=== PATIENT | male | born 1975 | race Caucasian/White ===

== ENCOUNTER 2016-12-03 14:21 | Inpatient (IN) | payer OTHER ==
[~2016-12-03] VITALS: Ht 200.7 cm; Wt 263.4 kg
--- NOTE | ~2016-12-03 | ENPV ---
Vascular Lower Extremities DVT Study Procedure Demographics Patient Name TESFAYE WILCOX Date of Study 12/03/2016 Patient Number [id number] Gender Male Date of 1975 Age 41 Visit Number [id number] Height Accession Number [id number] Weight Room Number G3217 BSA BMI Referring Daria Pichardo Interpreting Arjun Miller MD Physician Physician Physician Ordering Physician Daria Kumar MD [employer] Meal Attendant Sam Hayden [facility], [facility] Conclusions Summary No evidence of deep vein thrombosis or superficial thrombophlebitis in the right lower extremity . Procedure Type of Study: Veins:Lower Extremities DVT Study, Lower Extremity Right. Indications for Study:Pain in Limb and Swelling of Limb. Appropriate Use Criteria:9 Allergies - No known allergies. Patient Status:STAT. Study Location:ER. Technical Quality:Adequate visualization. Velocities are measured in cm/s ; Diameters are measured in cm Right Lower Extremities DVT Study Measurements Right 2D and Doppler Measurements + + + + +------+------+ + !Location !Visualized!Compressibility!Thrombosis!Signal!Reflux!Reflux ! ! ! ! ! ! ! !(sec) ! + + + + +------+------+ + !GSV Thigh !Yes !Yes !None !Phasic! ! ! + + + + +------+------+ + !Common !Yes !Yes !None !Phasic! ! ! !Femoral ! ! ! ! ! ! ! + + + + +------+------+ + !Prox !Yes !Yes !None !Phasic! ! ! !Femoral ! ! ! ! ! ! ! + + + + +------+------+ + !Mid Femoral!Yes !Yes !None !Phasic! ! ! + + + + +------+------+ + !Dist !Yes !Yes !None !Phasic! ! ! !Femoral ! ! ! ! ! ! ! + + + + +------+------+ + !Popliteal !Yes !Yes !None !Phasic! ! ! + + + + +------+------+ + !Gastroc !Yes !Yes !None !Phasic! ! ! + + + + +------+------+ + !PTV !Yes !Yes !None !Phasic! ! ! + + + + +------+------+ + !Peroneal !Yes !Yes !None !Phasic! ! ! + + + + +------+------+ + Left Lower Extremities DVT Study Measurements Left 2D and Doppler Measurements + + + + +------+------+ + !Location !Visualized!Compressibility!Thrombosis!Signal!Reflux!Reflux ! ! ! ! ! ! ! !(sec) ! + + + + +------+------+ + !Common !Yes !Yes !None !Phasic! ! ! !Femoral ! ! ! ! ! ! ! + + + + +------+------+ + Signature dtt: MALINI PATTEN dtquinn: 12/03/16 1635 Physician Self Edit
--- NOTE | ~2016-12-03 | CON ---
PATIENT'S NAME: TESFAYE WILCOX [facility] AGE: 41 Y [address] ROOM: [address] [place] [id number] LOCATION: [facility] [place] ADMIT DATE: 12/03/2016 Consultation DISCHARGE DATE: FAMILY PHYSICIAN: Miah Mishra MD ATTENDING PHYSICIAN: ADITYA VILLA V REFERRING PHYSICIAN: CORRINE FRANCISCO PA-C CHIEF COMPLAINT: Right foot pain. HISTORY OF PRESENT ILLNESS: Tesfaye is a pleasant 41-year-old, morbidly obese gentleman, I was asked to see and evaluate for a draining right foot wound. The patient has been to the hospital on December 03, 2016 with pain, erythema, and drainage coming from his right foot. He does have a past medical history significant for diabetes mellitus, cardiomyopathy, and obesity. He had a history of osteomyelitis and wound problems in the left forefoot, which ultimately resulted in amputation of his great and second toes. Since that time, he has had relatively no difficulty with that left foot. He ambulates independently. The patient has noted in the last few weeks, there has been a wound at the lateral border of the right forefoot that has progressed to wound breakdown. He recently developed erythema, swelling, and purulent drainage. He was started on antibiotics on admission, and the drainage has subsided, and his pain has improved, but there was still a persistent wound. Unfortunately, the patient is unable to obtain an MRI because he has a pacemaker. He is also unable to obtain a CT scan secondary to his inability to fit into the CT scanner. The patient was rendering local wound care to the right foot, felt as though he was not making any progress which prompted him to present to the emergency room. Currently, the patient denies any constitutional symptoms such as fever, chills, or night sweats. He also denies any dizziness, chest pain, shortness of breath, blurred vision, nausea, vomiting, or diarrhea. REVIEW OF SYSTEMS: A 10-point review of systems, otherwise, mentioned above in the HPI. The patient issue is musculoskeletal and pertains to the right lower extremity. There is pain, swelling, and active purulent drainage from the lateral border of the right forefoot. PAST MEDICAL HISTORY: Includes obstructive sleep apnea, insulin-dependent diabetes, nonischemic cardiomyopathy, hypertension, and previous amputations of the left foot. MEDICATIONS: Include, 1. Simvastatin. 2. Lisinopril. PATIENT'S NAME: TESFAYE WILCOX [facility] AGE: 41 Y [address] ROOM: [id number] [place], [place] [address] LOCATION: [facility] [place] ADMIT DATE: 12/03/2016 Consultation DISCHARGE DATE: FAMILY PHYSICIAN: Miah Mishra MD ATTENDING PHYSICIAN: ADITYA VILLA V 3. Carvedilol. 4. Furosemide. 5. Magnesium oxide. 6. Metolazone. 7. Aspirin. 8. Humulin insulin. SOCIAL HISTORY: Negative for any ongoing history of toxic habits. He denies any alcohol, tobacco, or illicit drug use. FAMILY HISTORY: Includes history of diabetes in the maternal and paternal sides of the family. PHYSICAL EXAMINATION: VITALS SIGNS: Temperature 98.4, respirations of 18, heart rate of 60, and blood pressure 137/69. HEENT: Normocephalic and atraumatic. Extraocular movements are intact. PERRLA. Moist mucous membranes. Oropharyngeal airway is clear. NECK: Supple. Trachea is in the midline. CARDIOVASCULAR: Regular rate and rhythm. ABDOMEN: Soft, nontender, and nondistended. CHEST: Normal, symmetric respirations were observed bilaterally. PELVIS: Stable. MUSCULOSKELETAL: Right lower extremity; focal examination of his right lower extremity reveals that he has compartment that are soft at the thigh, legs, and foot. There is palpable dorsalis pedal and dorsalis pedal pulse. There is +2 edema in the leg. The previous erythema, likely cellulitis, has resolved. There is significant swelling of the right foot. There is fluctuance at the lateral border of the foot at the level of the fifth metatarsal head. There is purulent drainage present. The patient is actively able to dorsiflex and plantar flex his foot. He denotes decreased sensation of the plantar surface of the foot. There was more intact sensation at the dorsum of the foot. The patient has evidence of gastrocnemius equinus. Left lower extremity focal examination; the patient's left lower extremity reveals that the thigh, calf, and foot are soft. Compartments are soft. There are palpable dorsalis pedal and posterior tibial pulses. The patient has had an amputation of the great and second toes. The flaps are healed. Extremities, otherwise, warm and well perfused. He has good capillary refill in the lesser toes. The patient is actively able to dorsiflex and plantar flex his ankle. He has good strength that is graded 5/5. IMAGING DATA: Plain radiographs of the right foot were obtained that revealed evidence of an PATIENT'S NAME: TESFAYE WILCOX [facility] AGE: 41 Y [address] ROOM: [place] [address] LOCATION: [facility] [place] ADMIT DATE: 12/03/2016 Consultation DISCHARGE DATE: FAMILY PHYSICIAN: Miah Mishra MD ATTENDING PHYSICIAN: ADITYA VILLA V active osteomyelitis picture of the fifth metatarsal head and small toe. There is significant soft tissue swelling present. 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 LABORATORY VALUES: CBC: Hemoglobin 10.3, hematocrit 33, white blood cell count of 8.1, and platelet count of 249. Chem-7: Sodium 140, potassium 4.2, chloride 105, CO2 of 27, BUN 9, creatinine 0.8, glucose 179. PTT of 30, INR 1.2, PT of 12.3. Micro from wound culture includes evidence of multiple organisms including Proteus mirabilis, Staphylococcus aureus, and Staphylococcus intermedius. Blood cultures are currently negative. Urine culture is likely contaminated. CRP is 10.8. Procalcitonin is negative. Glycosylated hemoglobin is 8.7. IMPRESSION: 1. Right foot osteomyelitis with active draining wound. 2. Morbid obesity with poorly controlled insulin-dependent diabetes mellitus. 3. Gastrocnemius equinus. PLAN: I had a long discussion with the patient today in the presence of his regarding his right foot. The swelling and purulent drainage along with the surrounding periwound cellulitis has improved with parenteral antibiotics. Unfortunately, based upon his plain film, there is osteomyelitis in the foot at least at the level of the small toe and fifth metatarsal distally. Unfortunately, the patient is not a candidate for advanced diagnostic imaging as he has a pacemaker and is too large to fit into the gantry of the CT scanner. Despite this, I have discussed that with the patient's surgery. I am recommending a partial amputation of the right foot, likely a portion of the fifth ray and small toe along with extensive debridement of the affected soft tissues in the area. I am also recommending a gastrocnemius recession to address his equinus/shortened Achilles tendon. I believe this may be contributing to the overloading of the forefoot. I explained to the patient he may also require placement of a negative pressure wound VAC if I am unable to approximate the soft tissues intraoperatively for primary closure. I have discussed the risks, benefits, and alternatives pursuing a surgical intervention with the patient in detail. I discussed the risks of anesthesia, infection, bleeding, and/or injury to neurovascular structures about the right foot. The patient is a poorly-controlled diabetic, has the previous amputations, and is likely going to be at increased risk for delayed wound healing, or no healing of the wound at all, which may require a revision amputation. Ultimately, I believe the patient will likely require a below-the- knee amputation at some point moving forward. Seeing that the plantar surface of his foot is otherwise plantigrade with no unusual bony prominences but for the fifth metatarsal head, we will attempt a functional amputation of the foot PATIENT'S NAME: TESFAYE WILCOX [facility] AGE: 41 Y [address] ROOM: [place] [address] LOCATION: [facility] [place] ADMIT DATE: 12/03/2016 Consultation DISCHARGE DATE: FAMILY PHYSICIAN: Miah Mishra MD ATTENDING PHYSICIAN: ADITYA VILLA V and try to get him back ambulating as soon as the foot is healed. The patient is currently n.p.o. He has been cleared for surgery by the hospitalist. We will plan for surgery as soon as this afternoon. MD CELIA WHEELER/eddie /[id number] d: 12/07/16 0849 t: 12/07/16 1332, CONSULTATION REPORT
--- NOTE | ~2016-12-03 | CON ---
[facility] 41 Y [address] ROOM: [place] [address] [place] [facility] [place] DATE: 12/03/2016 Consultation DISCHARGE DATE: FAMILY PHYSICIAN: Miah Mishra MD ATTENDING PHYSICIAN: ADITYA VILLA V DATE OF CONSULTATION: 12/09/2016 REFERRING PHYSICIAN: CORRINE FRANCISCO PA-C INFECTIOUS DISEASE CONSULTATION REASON FOR EVALUATION: Infected foot. CHIEF COMPLAINT: The patient states that he is doing better. HISTORY OF PRESENT ILLNESS: Mr. Borrego is a 41-year-old morbidly obese diabetic man. He developed a wound on the right lateral part of his foot, and it was worsening over several weeks. It was draining pus, and there was erythema tracking up his foot. Foot x-ray was consistent with osteomyelitis, due to his body habitus, we could not obtain any other imaging. He was admitted to the hospital and started on empiric antibiotics. He was evaluated by Orthopedics. He underwent surgery with a fifth ray amputation, and the OP note mentions the distal two-third proximally of the metatarsal was removed. He is doing okay and had a dressing change earlier today, and tissues were reportedly looking good at that time. I have viewed the picture on the patient's family member's cell phone, and it looked okay. He has not had fevers. He remains on vancomycin and Zosyn. I am asked to evaluate. PAST MEDICAL HISTORY: Significant for other toe infection, status post amputation, diabetes mellitus (hemoglobin A1c 8.7), morbid obesity, obstructive sleep apnea, cardiomyopathy, high blood pressure, dyslipidemia. SOCIAL HISTORY: Negative for tobacco, alcohol, or drug use. FAMILY HISTORY: No unusual infections or immune disorder. REVIEW OF SYSTEMS: Pertinent positives include: MUSCULOSKELETAL: The patient with the foot issues. PATIENT'S NAME: YADIRA BORREGOH [facility] AGE: 41 Y [address] ROOM: [place] [address] [place] [facility] [place] DATE: 12/03/2016 Consultation DISCHARGE DATE: FAMILY PHYSICIAN: Miah Mishra MD ATTENDING PHYSICIAN: ADITYA VILLA V RESPIRATORY: The patient with obstructive sleep apnea, uses CPAP when he sleeps. As the patient denies other symptoms, remainder of a complete review of systems is otherwise negative. PHYSICAL EXAMINATION: GENERAL: The patient is lying in bed, in no acute distress. HEENT: The patient is anicteric. No conjunctival lesions noted. Ears, Nose, and Throat: Tongue has no thrush. CARDIOVASCULAR: Heart is regular rate and rhythm. RESPIRATORY: Breath sounds are a little bit diminished due to body habitus, but his breathing is unlabored, and there are no focal findings. GASTROINTESTINAL: Abdomen is obese, soft, nontender, normoactive bowel sounds are present. NEUROLOGIC: The patient is awake, alert, and appropriate in conversation. LYMPHATIC: No cervical or axillary lymphadenopathy. Examination is limited secondary to his body habitus. MUSCULOSKELETAL: The patient's foot is in a bulky dressing at this time. INTEGUMENTARY: His midline catheter site looks okay. His foot is in a bulky dressing. He has no obvious rash. LABORATORY DATA: Laboratory studies are reviewed in the electronic medical record. ASSESSMENT AND RECOMMENDATIONS: Fifth metatarsal osteomyelitis. Hopefully, he has had surgical cure of infection here. Pathology is pending at this point. I will await the pathology margin. Should the margin be positive, he will require either further bony resection (which might be preferable) or long-term parenteral antibiotics. If he does require long-term parenteral antibiotics, a Groshong might be preferable to a PICC line as he will be needing crutches. Should his pathology margins to be negative, I think oral Augmentin until he has good tissue healing will be appropriate. I would dose him higher than normal with a dose of 875 mg 3 times daily given his body mass. Should pathology margin not be reported, I would ask Pathology specifically about the margins, so we can determine if he has any residual osteomyelitis present. Thank you for allowing me to participate in the care of Mr. Borrego. Please feel free to contact ID Service when pathology margin is available, so we can formalize a treatment plan. PATIENT'S NAME: TESFAYE BORREGO [facility] AGE: 41 Y [address] ROOM: [place] [address] [place] [facility] [place] DATE: 12/03/2016 Consultation DISCHARGE DATE: FAMILY PHYSICIAN: Miah Mishra MD ATTENDING PHYSICIAN: ADITYA VILLA MD DSQ/modl /[id number] d: 12/09/162019 t: 12/10/16 1002, CONSULTATION REPORT
--- NOTE | ~2016-12-03 | HP ---
[facility] 41 [facility] [address] ROOM: [place] [address] [place] [facility] [place] DATE: 12/03/2016 History & Physical DISCHARGE DATE: FAMILY PHYSICIAN: Miah Mishra MD ATTENDING PHYSICIAN: ADITYA VILLA V DATE OF SERVICE: CHIEF COMPLAINT: Open wound on the right foot. HISTORY OF PRESENT ILLNESS: The patient is a 41-year-old male with past medical history of super morbid obesity and prior diabetic osteomyelitis of the foot requiring amputations. He presented to the ER with several weeks of worsening open wound on his right lateral foot. In the last several days, the wound has opened up and started draining purulent material. There is also swelling tracking up the right lateral aspect of the foot. He denies any chest pain. His shortness of breath is at baseline attributed to his super morbid obesity, obstructive sleep apnea, and nonischemic cardiomyopathy. REVIEW OF SYSTEMS: All systems have been reviewed and are negative aside from the pertinent positives mentioned above. PAST MEDICAL HISTORY: 1. Obstructive sleep apnea. 2. Nonischemic cardiomyopathy, followed by Cardiology. 3. Insulin-dependent diabetes. 4. Hypertension. 5. Prior history of diabetic osteomyelitis of the foot. PAST SURGICAL HISTORY: Significant for prior amputations. CURRENT MEDICATIONS: 1. Simvastatin 20 mg. 2. Lisinopril 20 mg. 3. Carvedilol 25 mg. 4. Furosemide 80 mg. 5. Magnesium oxide 400 mg. 6. Metolazone 2.5 mg. 7. Aspirin 325 mg. [facility]: [facility] 41 Y [address] ROOM: [place] [id number] [place] [facility] [place] DATE: 12/03/2016 History & Physical DISCHARGE DATE: FAMILY PHYSICIAN: Miah Mishra MD ATTENDING PHYSICIAN: ADITYA VILLA V 8. Humulin U-500 15 to 25 units with meals. SOCIAL HISTORY: Negative for any toxic habits. FAMILY HISTORY: Reviewed and is noncontributory due to known underlying etiology of his presentation. PHYSICAL EXAMINATION: VITAL SIGNS: Weight 238 kg. Pulse is 60, respirations 22, temperature 98, saturating 93% on room air, and blood pressure 139/65. GENERAL: Appears as a morbidly obese, middle-aged male, in no acute distress. NEUROLOGICAL: Nonfocal. EYES: Show pupils are equal and reactive to light. LYMPHATIC: Shows no cervical lymphadenopathy. ENDOCRINE: Shows no thyromegaly. LUNGS: Difficult auscultation, but grossly clear. HEART: Rate is regular with no appreciable murmurs, gallops, or rubs. GI: Abdomen is soft, nontender. : No costovertebral angle tenderness. VASCULAR: Reveals palpable pedal pulses bilaterally. MUSCULOSKELETAL: No muscle or joint abnormalities aside from prior amputations over his left foot. SKIN: Exam on the right foot reveals an open wound with purulent discharge on the right lateral aspect of his foot, with edema and erythema tracking up to his toe and proximally down his lateral right foot. PSYCHIATRIC: Reveals appropriate mood, cognition, and affect. LABORATORY DATA: Studies performed in the ER significant for a plain film of the foot as the only modality available, which does show distant right metatarsal osteomyelitis. Lab results are significant for proBNP of 566, CRP of 10.8, negative CBC, and unremarkable UA. ASSESSMENT AND PLAN: This is a 41-year-old male, who will be admitted with diabetic osteomyelitis. Individual problems to be addressed: 1. Diabetic osteomyelitis of the right foot: I have requested for an Orthopedics consultation to see if the foot can be salvaged. We will start the patient on broad-spectrum antibiotics with vancomycin and Zosyn. Blood cultures have been drawn. We will get a Wound Care consult. 2. Gastrointestinal prophylaxis: We will put the patient on Florastor as he will be on broad-spectrum antibiotics. PATIENT'S NAME: TESFAYE WILCOX [facility] AGE: 41 Y [address] ROOM: [address] [place] [id number] [place] [facility] [place] DATE: 12/03/2016 History & Physical DISCHARGE DATE: FAMILY PHYSICIAN: Miah Mishra MD ATTENDING PHYSICIAN: ADITYA VILLA V 3. Insulin-dependent diabetes: We will continue the patient on his home regimen. 4. History of nonischemic cardiomyopathy: At this point, the patient appears to be at baseline. If and when a surgical intervention is planned, we will request a Cardiology evaluation to optimize the patient given his complex past cardiac history. 5. Obstructive sleep apnea: We will put him on his home CPAP. 6. Deep vein thrombosis prophylaxis will be pharmacologic given a very high risk for deep vein thrombosis. Additional management will depend on clinical course. Time dedicated to this patient's encounter is 35 minutes. MD JANIE LORENZ/eddie /[id number] D: [id number] T: [id number] HISTORY & PHYSICAL
--- NOTE | ~2016-12-03 | CON ---
PATIENT'S NAME: TESFAYE WILCOX [facility] AGE: 41 Y [address] ROOM: [address] [place], [place] [id number] LOCATION: [facility] [place] ADMIT DATE: 12/03/2016 Consultation DISCHARGE DATE: FAMILY PHYSICIAN: Miah Mishra MD ATTENDING PHYSICIAN: ADITYA VILLA V REFERRING PHYSICIAN: LIANG CAMPBELL Dr. has requested I provide an inpatient consultation on this 41-year- old male, who was admitted to the hospital on December 03 with pain, erythema, and drainage at his right foot. His past medical history is significant for diabetes mellitus, cardiomyopathy, and obesity. He has a history of osteomyelitis of his left forefoot (which ultimately required amputation of his left first and second toes). He has had no previous significant difficulty with his right foot. It should be noted that history is obtained via the patient, his , as well as Neil Lee PA-C. The patient developed the insidious onset of "blisters" at the lateral aspect of his right forefoot a few months ago. He questioned whether the work boots that he was wearing might have been a source of skin irritation, so he discontinued the potentially offending pair of boots. He denies any type of trauma to the right forefoot. He states that there was low-grade nonpurulent weeping-type drainage from the right forefoot over the past few months. However, he began to experience progressive pain, erythema, and swelling at the lateral aspects of the right forefoot approximately 1 week ago. Prior to that time, he and his had been applying Aquacel and hydrogen peroxide to the region. The patient associates the progressive of his right forefoot difficulties with ipsilateral generalized right lower extremity "fluid retention." He has chronic bilateral lower extremity lymphedema associated with his cardiomyopathy. The quality of his drainage transformed to a purulent state approximately 2 days ago. There was progressive erythema at that time as well. 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 The patient and his reside in [place]. He was admitted last evening. Cultures of the purulent drainage were obtained. X-rays were obtained. Empiric intravenous antibiotics were commenced (Zosyn and vancomycin). He denies fevers or chills. His workup has been complicated by virtue of the fact that he cannot have an MRI (due to the fact that he has an ICD). Furthermore, he was not able to fit in a CT scanner due to his body habitus. Plain radiographs were interpreted as demonstrating potential osteomyelitis of his fifth metatarsal head. He is not experiencing fevers, chills, or malaise. EXAM: PATIENT'S NAME: TESFAYE WILCOX [facility] AGE: 41 Y [address] ROOM: [address] [place], [place] [address] LOCATION: [facility] [place] ADMIT DATE: 12/03/2016 Consultation DISCHARGE DATE: FAMILY PHYSICIAN: Miah Mishra MD ATTENDING PHYSICIAN: ADITYA VILLA V The patient is alert and oriented. He is accompanied by his . He is in no distress. There is severe bilateral calf lymphedema. There was confluent erythema throughout the lateral half of his right forefoot. There was a 5 mm diameter open lesion at the plantar aspect of his fifth metatarsal head. There was moderate associated swelling and fluctuance. I am able to express purulent fluid through this area with gentle palpation. There was no fluctuance at the mid foot or the ankle itself. There was no pain with passive range of motion of the ankle itself. Capillary refill is 1 second at the tips of all toes in the right foot. Sensation to light touch is present (but subjectively decreased) at the tips of all the toes in his right foot. He is missing the first and second toes at his left foot. RADIOGRAPHS: I have reviewed the plain radiographs of his right foot. These demonstrate extensive resorption of bone at his fifth metatarsal head. No other osseous abnormalities noted. IMPRESSION: 1. Right forefoot cellulitis with associated subcutaneous abscess and osteomyelitis of fifth metatarsal head. 2. Diabetes mellitus. 3. Obesity. 4. Cardiomyopathy. 5. Chronic bilateral lower extremity lymphedema. 6. History of amputation of contralateral foot, first and second toes secondary to osteomyelitis. RECOMMENDATIONS: Continue empiric antibiotics until culture and sensitivity results are available. Neil and I had a lengthy discussion with the patient and his regarding treatment options. They understand that definitive treatment recommendations will be made by Dr. Almazan (upon Dr. Almazan' return to [facility] 48 hours from now). They understand irrigation and debridement and exploration of the wound will be performed. I have informed them that more definitive treatment (specifically), amputation of the fifth ray (or greater) may be necessary. The patient reports that analgesia is presently adequate. I have asked him to contact us promptly if he senses progressive discomfort, fevers, chills, malaise, or if he perceives that his status is deteriorating in any way prior to being evaluated by Dr. Almazan. Neil is made tentative arrangements for the patient in the operating room PATIENT'S NAME: TESFAYE WILCOX [facility] AGE: 41 Y [address] ROOM: [place] [address] LOCATION: [facility] [place] ADMIT DATE: 12/03/2016 Consultation DISCHARGE DATE: FAMILY PHYSICIAN: Miah Mishra MD ATTENDING PHYSICIAN: ADITYA VILLA V early next week. MD UBALDO WHITTINGTON/eddie /[id number] CC: MD Aditya Kumar MD d: 12/04/16 2155 t: 12/08/16 0753, CONSULTATION REPORT
--- NOTE | ~2016-12-03 | CON ---
PATIENT'S NAME: TESFAYE WILCOX [facility] AGE: 41 Y [address] ROOM: [address] [place], [place] [address] [place] [facility] [place] DATE: 12/03/2016 Consultation DISCHARGE DATE: FAMILY PHYSICIAN: Miah Mishra MD ATTENDING PHYSICIAN: ADITYA VILLA V DATE OF CONSULTATION: 12/04/2016 REFERRING PHYSICIAN: Aditya Villa MD REASON FOR VISIT: Right lateral foot wound. HISTORY OF PRESENT ILLNESS: This is a pleasant 41-year-old male patient who was admitted to [facility] with a right foot wound. The patient reports symptoms started about 10 days ago. Wednesday night, he noticed thick bloody exudate. morning, the drainage was thick and yellow. The patient denies fevers, chills, or sweats. No other constitutional symptoms noted. The patient denies pain. His has been treating the site with Vuclip Ag at home. He has a history of type 2 diabetes mellitus. His current hemoglobin A1c is 8.7%. He has a history of left great and second toe amputations by Dr. Fuentes. He has also been treated by [facility] in the past. He has worn a type of [place] walker boots in the past. He was fitted for them several years ago at [facility]. He is currently wearing no diabetic shoes, inserts, or offloading devices. His right foot x-ray is positive for osteomyelitis of the right fifth distal metatarsal area. Wound culture shows a few gram-positive cocci and moderate white blood cells. The patient is currently on IV vancomycin and Zosyn. The patient also has a significant history of obstructive sleep apnea, hypertension, morbid obesity, CHF, and nonischemic cardiomyopathy. He normally follows up with Dr. Mccloud. The patient denies chest pain or shortness of breath. He reports that in the last month he has been cutting down his portion size and had previously lost about 15 pounds. He reports since the ulcer started, he has been lying around more and has gained his weight back including some "water weight." The patient has seen Kary Vazquez APRN ([place]. He reports his blood sugars have improved in the last month since he has tried to change his diet. The patient currently lives in [place], [place] with his but still doctors some in [place]. PAST MEDICAL HISTORY: Type 2 diabetes mellitus, history of diabetic foot ulcers, obstructive sleep apnea, essential hypertension, morbid obesity, congestive heart failure, and PATIENT'S NAME: TESFAYE WILCOX [facility] AGE: 41 Y [address] ROOM: [address] [place], [place] [address] [place] [facility] [place] DATE: 12/03/2016 Consultation DISCHARGE DATE: FAMILY PHYSICIAN: Miah Mishra MD ATTENDING PHYSICIAN: ADITYA VILLA V nonischemic cardiomyopathy. PAST SURGICAL HISTORY: Circumcision, left great toe and second toe amputations, and a [employer] ICD pacemaker. FAMILY HISTORY: The patient endorses his parents suffered from heart disease. His mother also had diabetes. SOCIAL HISTORY: The patient lives with his in [place], [place]. He has 3 daughters. 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 He is a never-smoker. He admits to rare alcohol use. He denies illegal substances. ALLERGIES: NO KNOWN MEDICATION ALLERGIES. CURRENT MEDICATIONS: Pertinent to this dictation are: 1. IV vancomycin. 2. IV Zosyn. Please refer to the medication administration record for further details. PHYSICAL EXAMINATION: VITAL SIGNS: Temperature 98.4, pulse 62, respirations 18, blood pressure 119/58, and pulse oximetry 92% on room air. Height 6 feet 7 inches, weight 263.4 kg, and BMI 65.4. GENERAL: The patient is alert and oriented x3. In no acute distress. Appears as an obese, middle-aged patient. HEENT: Head is normocephalic and atraumatic. Oral mucosa intact. NECK: Girth large. HEART: Regular rate and rhythm. ABDOMEN: Round and soft. EXTREMITIES: +2 pedal pulses. +1 to +2 right foot edema. SKIN: Right lateral foot is fluctuant and erythemic. Lateral fifth metatarsal head area has a yellow discolored area with a small ulcer that measures 0.2 cm width x 0.2 cm length x 1.5 cm depth. No bone probe. Able to express a moderate amount of purulent exudate. No odor noted. Periwound is red and hot to touch. Erythema noted on the dorsal and plantar aspects of the foot. LABORATORY DATA: White blood cell count 10.7, hemoglobin 11.0, hematocrit 34.2, and platelets 281. Sodium 135, potassium 4.1, chloride 97, bicarbonate 31, BUN 22, PATIENT'S NAME: TESFAYE WILCOX [facility] AGE: 41 Y [address] ROOM: [place] [address] [place] [facility] [place]: 12/03/2016 Consultation DISCHARGE DATE: FAMILY PHYSICIAN: Miah Mishra MD ATTENDING PHYSICIAN: ADITYA VILLA V creatinine 1.1, and glucose 158. Albumin 3.1. Procalcitonin 0.05. Hemoglobin A1c 8.7%. Blood culture showed no growth to date. Wound cultures show a few gram-positive cocci, moderate white blood cells, moderate amount of amorphous material present, and rare epithelial cells. Subcultures pending. Right foot x-ray is positive for osteomyelitis of the distal fifth metatarsal. ASSESSMENT AND PLAN: Again, this is a 41-year-old male patient who was admitted to [facility] with a right foot wound. He has a significant history of type 2 diabetes mellitus and has osteomyelitis to the bone. 1. Right lateral fifth metatarsal head diabetic foot ulcer. The patient is positive for osteomyelitis. Orthopedics is onboard to make treatment recommendations. The patient will possibly need I and D or amputation. May possibly need to involve ID, and the patient may also need a PICC line. The patient had several questions, and I deferred answers to Orthopedics. I discussed with the patient the importance of offloading to prevent future ulcers. I also ordered a diabetic consult. It is helpful the patient is starting to make lifestyle modifications. For now, I instructed Nursing to loosely pack the wound with iodoform 1/4- inch Nu Gauze, changing it b.i.d. They may cover with Kerlix. The patient is to elevate his right foot at all times. 2. Type 2 diabetes mellitus. The patient is on insulin and Accu-Cheks. Diabetic consult ordered. Discussed lifestyle modifications. 3. Morbid obesity. The patient was encouraged to continue portion control. I would like to thank Dr. Villa for this consultation. HIRAL ANGLIN APRN FOR MD JUSTIN MOORE/eddie /[id number] d: 12/04/16 1458 t: 12/21/16 1508, CONSULTATION REPORT
--- NOTE | ~2016-12-03 | ER ---
[facility] 41 [facility] [address] ROOM: [place] [address] LOCATION: [facility] [place] ADMIT DATE: 12/03/2016 ER/Outpatient Report DISCHARGE DATE: FAMILY PHYSICIAN: Miah Mishra MD ATTENDING PHYSICIAN: ADITYA VILLA V Time of Arrival: 1421 hours. Time Seen: 1430 hours. IDENTIFICATION: A 41-year-old male. CHIEF COMPLAINT: Sore on right foot. HISTORY OF PRESENT ILLNESS: The patient is a 41-year-old white male from [place], [place], but comes back here because he is originally from [place], and he has lily in Dr. Barrett and Dr. Mishra. The patient has had a sore on the lateral aspect of his right foot for approximately 2 months. It has become red and angry over the last 2 days. He has had no fever or chills. No other systemic symptoms. He has had shortness of breath with activity, but that is not new. PAST MEDICAL HISTORY: ALLERGIES: NO KNOWN DRUG ALLERGIES. CURRENT MEDICATIONS: 1. Simvastatin 20 mg per day. 2. Lisinopril 20 mg a day. 3. Carvedilol 25 mg 1-1/2 tablets 2 times a day. 4. Furosemide 80 mg 2 per day. 5. Magnesium oxide 400 mg 2 per day. 6. Metolazone 2.5 mg on Wednesday, Wednesday, and Wednesday. 7. Aspirin 325 mg day. 8. Humulin U-500 15-25 units with meals. MEDICAL PROBLEMS: Diabetes, insulin requiring; CHF; morbid obesity; nonischemic cardiomyopathy, status post AICD pacemaker per Dr. Johnson in 2013; peripheral neuropathy; hyperlipidemia; coronary artery disease; elevated liver enzymes; obstructive sleep apnea; and hypertension. PRIOR SURGERIES: PATIENT'S NAME: [facility] AGE: 41 Y [address] ROOM: [place] [address] LOCATION: [facility] [place] ADMIT DATE: 12/03/2016 ER/Outpatient Report DISCHARGE DATE: FAMILY PHYSICIAN: Miah Mishra MD ATTENDING PHYSICIAN: ADITYA VILLA V Left great toe amputation and left second toe amputation. SOCIAL HISTORY: The patient is . This is a 2nd marriage between the 2 of them. They have 6 children and 5 grandchildren. He lives in [place]. He works at [employer]. Tobacco use, denies. Alcohol use, denies. Drug use, denies. REVIEW OF SYSTEMS: All systems reviewed and negative other than what is noted in the HPI. FAMILY HISTORY: Positive for obesity. Mother of complication of congestive heart failure with diabetes and hypertension. Father was killed in an MVA, 1 brother at age 21 in an MVA. PHYSICAL EXAMINATION: VITAL SIGNS: Height 6 feet 7 inches, weight 238.6 kg (575 pounds), blood pressure 139/65, pulse 60, respirations 22, temperature 98.9, and saturations 93% on room air. GENERAL: A 41-year-old male, in no acute distress. HEENT: Head: Normocephalic, atraumatic. TMs not visualized. Eyes: Pupils equal and reactive to light and accommodation. Extraocular movements intact. Nose: Mucosa pink. No lesions or drainage. Mouth: No lesions. Pharynx benign. NECK: Supple. No lymphadenopathy. No nuchal rigidity. LUNGS: Clear to auscultation. Breath sounds are equal. HEART: Regular rate and rhythm. No murmur, rub, or gallop. ABDOMEN: Protuberant. Bowel sounds present. Soft, nondistended, nontender. SKIN: [place], warm, and dry. No lesions or rashes noted. NEURO: The patient is alert and oriented x4. Cranial nerves 2 through 12 grossly intact. Motor strength 5/5 throughout. Sensation is intact to light touch with the exception of the bottoms of his feet. He has some peripheral neuropathy and that is not new. He does have bilateral lower extremity edema, right greater than left. He has open ulcerative lesion measuring approximately 2.5 cm in diameter on the lateral aspect of his right foot with surrounding erythema extending out about 8 or 9 cm. The wound is draining, it was cultured, it is warm to touch and tender. X-ray revealed osteomyelitis of the distal aspect of the left 5th metatarsal, pending Radiology over-read. Chest x-ray, 1 view: Bilateral increased pulmonary vascularity; no definite infiltrate; poor inspiratory effort; pacemaker, left upper chest per Radiology over-read. Gram stain of the wound positive for moderate white blood cells, few gram-positive cocci. Culture is pending. UA is negative. Urine culture pending. Blood cultures x2 pending. ProBNP PATIENT'S NAME: TESFAYE WILCOX [facility] AGE: 41 Y [address] ROOM: [address] [address] LOCATION: [facility] [place] ADMIT DATE: 12/03/2016 ER/Outpatient Report DISCHARGE DATE: FAMILY PHYSICIAN: Miah Mishra MD ATTENDING PHYSICIAN: ADITYA VILLA V elevated at 566. No previous proBNP available for comparison. D-dimer elevated at 2.17. Venous Doppler of his right lower extremity negative for clot. Sodium 135, potassium 4.1, chloride 97, CO2 31, BUN 22, creatinine 1.1, blood sugar 158. Liver enzymes are normal. CRP elevated at 10.80. INR 1.2. White count 10.7, hemoglobin 11, hematocrit 34.2, and platelets 281. White blood cell differential is normal. Procalcitonin 0.05. Lactate 1.5. IMPRESSION AND PLAN: 1. Osteomyelitis, right lower extremity. 2. Ulcerative wound, right lower extremity. 3. Diabetes mellitus, insulin requiring. 4. Morbid obesity. 5. Nonischemic cardiomyopathy. 6. Congestive heart failure. PLAN: Saline lock, vancomycin, and Zosyn. Admit for Dr. Villa. I did discuss with Dr. Amin who is on-call for Dr. Mishra. He recommended hospitalist admission and I notified Dr. Mccloud, his glass cleaning machine tender. The patient and his understand and agree, and all questions have been answered. GAEL MO MD CAR/modl /[id number] d: 12/03/168 t: 12/04/16 1541, OUTPATIENT REPORT
--- NOTE | ~2016-12-03 | DS ---
PATIENT'S NAME: TESFAYE WILCOX [facility] AGE: 41 Y [address] ROOM: [id number] [place], [place] [address] [place] [facility] [place] DATE: 12/03/2016 Discharge Summary DISCHARGE DATE: 12/11/2016 FAMILY PHYSICIAN: Miah Mishra MD ATTENDING PHYSICIAN: Jose Francisco Dubon CO-SIGING PROVIDER PER PHYSICIAN 01/11/17 AO FINAL DIAGNOSES: 1. Osteomyelitis of the right foot. 2. Diabetes mellitus type 2. 3. Ischemic cardiomyopathy. 4. Morbid obesity. 5. Obstructive sleep apnea. PROCEDURES: Include I and D of the 5th toe with amputation of the 5th toe and partial 5th metatarsal amputation by Dr. Almazan. Also PowerGlide line inserted on 12/10/[address] Mac. HOSPITAL COURSE: Please see details of admission in H and P by Dr. Dubon. Briefly, the patient was admitted with continued signs of infection from his right foot. He has had previous amputation to his left forefoot secondary to diabetes complications. The patient noticed similar symptoms and thus was admitted to the hospital for further evaluation and treatment. Consultation by wound nurse was obtained. The patient was started on vancomycin and Zosyn. Dr. Lee was notified of consultation, and he was able to evaluate the patient on the and did recommend Dr. Almazan to follow up upon his return. We monitored his blood sugars closely as the patient does require great amounts of insulin. With his history of nonischemic cardiomyopathy, we did continue his diuretics and medications for secondary prevention. Wound cultures were obtained prior to the onset of antibiotic therapy on the . Culture showed Proteus mirabilis, Staphylococcus aureus, and Streptococcus intermedius. Infectious Disease was consulted for further management of the patient's ongoing infection. Dr. Almazan did see the patient on the and recommended I and D with amputation as mentioned above. The patient's pain was well controlled throughout his stay with Percocet. On the , the patient did undergo I and D and amputation. During his stay here, we did discuss evaluation with a specialist for his diabetes and metabolic disorders. It was determined that we would set him up with a specialist at the [facility] upon discharge. The patient did well; initially had wound VAC, but that was discontinued on postoperative day #2. Infectious Disease did see him on the , recommended Unasyn 3 g IV q.6 hours for potentially 6 weeks. We were not able to have bone pathology evaluation during this stay and the decision was made to continue IV antibiotics with the Unasyn. Due to long-term antibiotics, we needed long-term IV access. The PowerGlide was recommended due to the patient using crutches for ambulation. This was able to be accomplished on 12/10/2016 and was not completed until 1800 that day. On the PATIENT'S NAME: TESFAYE WILCOX [facility] AGE: 41 Y [address] ROOM: [place] [address] [place] [facility] [place] DATE: 12/03/2016 Discharge Summary DISCHARGE DATE: 12/11/2016 FAMILY PHYSICIAN: Miah Mishra MD ATTENDING PHYSICIAN: Jose Francisco Dubon V , it was felt that the patient could safely be discharged, home infusion was able to be set up. The patient was educated and fully understood dressing changes and further management of the foot. Infectious Disease will continue to follow as an outpatient and will see him [place] in 2 weeks. DIAGNOSTICS: Radiology reports: X-ray of the right foot shows osteomyelitis of the distal 5th metatarsal. Chest x-ray shows cardiomegaly with chronic pulmonary hypertension. Two-view of the right foot on 12/07/2016 shows amputation of the little toe and distal portion of the 5th metatarsal. LABORATORY DATA: Blood sugars ranged from 84 to 268. Lactate on the was 1.5. On admission, sodium 135, potassium 4.1, chloride 97, bicarb 31, glucose 150, BUN 22, creatinine 1.1, CRP was 10.8, proBNP was 566. His lab values remained stable throughout his stay. Hemoglobin A1c on the was 8.7%. On admission, white blood cell count 10.7, hemoglobin 11.0, hematocrit 34.2, and platelets 281. These values also remained stable throughout his stay. MICROBIOLOGY DATA: On the , a swab of the right foot did show the Proteus, Staph and Strep. Blood cultures drawn on the were negative at 5 days. Urine culture done on the showed contaminant. On the , swab of the 5th toe was consistent with Streptococcus intermedius, Proteus mirabilis, and Staphylococcus aureus. Tissue sample from the 5th toe showed culture consistent with Staphylococcus aureus and Proteus. Vascular study of the lower extremity showed no evidence of DVT or superficial thrombophlebitis in the right lower extremity. DISCHARGE INSTRUCTIONS: The patient is discharged to home. Diet is diabetic. Activity is nonweightbearing to the right lower extremity. The patient will follow up in [place] with Infectious Disease in 2 weeks. He is to follow up with Dr. Sissy Gilliam at [facility] for endocrine and Dr. Almazan in 2 weeks. Home infusion will continue as IV antibiotics. The patient is to have weekly CBC and CMS faxed to ID in [place]. He is to change the right lower extremity dressing every 2 to 3 days with Xeroform, 4x4s gauze, ABD, cast padding, and Carl wraps. DISCHARGE MEDICATIONS: 1. Unasyn 3 g IV q.6 hours per home infusion. 2. Coreg 37.5 mg p.o. twice daily. 3. Lasix 80 mg twice daily. 4. Zaroxolyn 2.5 mg 3 days a week. 5. Regular insulin 500 units subcu 5 times a day per sliding scale. 6. Florastor 250 mg p.o. twice daily. 7. Simvastatin 20 mg at bedtime. 8. Tylenol 650 mg every 6 hours as needed. 9. Percocet 1 tablet every 2 hours as needed. PATIENT'S NAME: TESFAYE WILCOX [facility] AGE: 41 Y [address] ROOM: [place] [address] [place] [facility] [place] DATE: 12/03/2016 Discharge Summary DISCHARGE DATE: 12/11/2016 FAMILY PHYSICIAN: Miah Mishra MD ATTENDING PHYSICIAN: Jose Francisco Dubon V 10. Lisinopril 40 mg at bedtime. 11. Magnesium oxide 400 mg twice daily. 12. Aspirin 325 mg daily. 13. Robitussin 10 mL at bedtime p.r.n. We do appreciate participating in this patient's care, and thank you very much for the ability to serve him while hospitalized at [facility]. Time spent coordinating details of discharge was 45 minutes of which was spent coordinating with consulting physicians and Care Management, completion of medication reconciliation, and education to the patient and family on the above-mentioned diagnoses. DEIRDRE FERNANDO FOR MD YULIYA CARCAMO/modl /[id number] CORRECTED CO-SIGING PROVIDER PER PHYSICIAN 01/11/17 AO d: 12/12/16 0429 t: 01/17/17 1657, DISCHARGE SUMMARY
--- NOTE | ~2016-12-03 | HP ---
PATIENT'S NAME: [facility] AGE: 41 Y [address] ROOM: [place] [address] LOCATION: [facility] [place] ADMIT DATE: 12/03/2016 History & Physical DISCHARGE DATE: FAMILY PHYSICIAN: Miah Mishra MD ATTENDING PHYSICIAN: ADITYA VILLA V DATE OF SERVICE: CHIEF COMPLAINT: Open leg wound. HISTORY OF PRESENT ILLNESS: The patient is a 41-year-old male with past medical history most significant for super morbid obesity, nonischemic cardiomyopathy with chronic heart failure as well as insulin-dependent diabetes. The patient presented to the ER today with several weeks of worsening wound over the right lateral aspect of his distal foot and into his 5th metatarsal. The wound has become progressively worse. It is now draining purulent liquid and there is erythema tracking up his lateral foot from the toe. He denies any chest pain, shortness of breath, nausea, vomiting, diarrhea, or palpitations outside of his baseline. In the ER, the patient had a plain film of his foot, which was read as osteomyelitis. He is not able to fit in a CAT scan or an MRI for further imaging. REVIEW OF SYSTEMS: All systems have been reviewed and are negative aside from pertinent positives mentioned above. PAST MEDICAL HISTORY: Obstructive sleep apnea, insulin-dependent diabetes, nonischemic cardiomyopathy, hypertension, and prior history of toe amputations on the other foot. CURRENT MEDICATIONS: 1. Simvastatin. 2. Lisinopril. 3. Carvedilol. 4. Furosemide. 5. Magnesium oxide. 6. Metolazone. 7. Aspirin. 8. Humulin U-500 15-25 units with meals. PAT[facility]'S [facility] AGE: 41 Y [address] ROOM: [place] [address] LOCATION: [facility] – [place] ADMIT DATE: 12/03/2016 History & Physical DISCHARGE DATE: FAMILY PHYSICIAN: Miah Mishra MD ATTENDING PHYSICIAN: ADITYA VILLA V SOCIAL HISTORY: Negative for any ongoing or history of toxic habits. FAMILY HISTORY: Reviewed and is noncontributory due to known underlying etiology for his presentation. PHYSICAL EXAMINATION: VITAL SIGNS: Pulse is 60, respirations 22, temperature 98, saturating 93% on room air, blood pressure 139/65, and weight is 238.6 kg. GENERAL APPEARANCE: This is a morbidly obese, middle-aged male, in no acute distress, nontoxic. NEUROLOGICAL: Exam is nonfocal. EYES: Exam shows pupils are equal and reactive to light. LYMPHATIC: Exam shows no cervical lymphadenopathy. ENDOCRINE: Exam shows no thyromegaly. LUNGS: Clear to auscultation with a difficult auscultation due to body habitus. HEART: Rate is regular. No appreciable murmurs, gallops, or rubs. GI: Abdomen is soft, nontender, nondistended. : Exam reveals no costovertebral angle tenderness. VASCULAR: Exam reveals 2+ pedal pulses. SKIN: Exam reveals an open draining wound over the right lateral aspect of his right foot with extension to the distal right metatarsal as well as up the lateral aspect of the right foot. PSYCHIATRIC: Appropriate mood, cognition, and affect. MUSCULOSKELETAL: No muscle or joint abnormalities aside from prior amputations on his left foot. LABORATORY DATA: Studies in the ER significant for unremarkable basic metabolic profile. ProBNP of 566. CRP of 10.8. Unremarkable CBC. D-dimer of 2.17. Negative urinalysis. X-ray shows distal right metatarsal osteomyelitis. ASSESSMENT AND PLAN: This is a 41-year-old male who will be admitted with, 1. Right foot diabetic osteomyelitis. We will begin the patient on aggressive broad antibiotic coverage with vancomycin and Zosyn. I have requested for an orthopedic evaluation to see if the foot can be salvaged surgically. We will also put him on a probiotic regimen. 2. Nonischemic cardiomyopathy. He appears euvolemic. If a surgical intervention is planned, we will get a Cardiology to clear him as he does have a complex cardiac history. 3. Insulin-dependent diabetes. We will continue the patient on his home PATIENT'S NAME: TESFAYE WILCOX [facility] AGE: 41 Y [address] ROOM: [address] [address] LOCATION: [facility] – [place] ADMIT DATE: 12/03/2016 History & Physical DISCHARGE DATE: FAMILY PHYSICIAN: Miah Mishra MD ATTENDING PHYSICIAN: ADITYA VILLA. 4. Hypertension. We will continue him on his current regimen. 5. Deep venous thrombosis prophylaxis will be pharmacologic due to his very high risk for DVT. Additional management will depend on clinical course. Time dedicated to this patient's encounter is 35 minutes. MD JANIE LORENZ/eddie /[id number] D: [id number] T: [id number] HISTORY & PHYSICAL
--- NOTE | ~2016-12-03 | OR ---
[facility] 41 Y [address] ROOM: [place] [address] LOCATION: [facility] [place] ADMIT DATE: 12/03/2016 OR/Procedure Report DISCHARGE DATE: FAMILY PHYSICIAN: Miah Mishra MD ATTENDING PHYSICIAN: ADITYA VILLA V SURGEON: Rickie Almazan MD AIRCRAFT MACHINIST HELPER: Neil Lee PA-C. DATE OF PROCEDURE: 12/07/2016 PREOPERATIVE DIAGNOSES: 1. Right foot osteomyelitis. 2. Gastrocnemius equinus/short Achilles tendon. 3. Right foot abscess. 4. Gangrene, right toe. POSTOPERATIVE DIAGNOSES: 1. Right foot osteomyelitis. 2. Gastrocnemius equinus/short Achilles tendon. 3. Right foot abscess. 4. Gangrene, right toe. PROCEDURE: 1. Right gastrocnemius recession procedure. 2. Irrigation and debridement of right foot that include skin, subcutaneous tissue, muscle, fascia, and bone; incision 8 cm in length. 3. Partial amputation of right 5th metatarsal and a complete amputation of right 5th toe. 4. Debridement of 5th metatarsal head plantar ulcer. 5. Use of intraoperative fluoroscopy, less than 1 hour. ANESTHESIA: Sedation, peripheral nerve block. ESTIMATED BLOOD LOSS: Minimal. TOURNIQUET: Right proximal thigh, right leg at 250 mmHg. SPECIMEN: Right 5th metatarsal, right 5th toe, and soft tissue along with wound cultures. COMPLICATIONS: None. DISPOSITION: Stable in PACU. COUNTS: All counts correct. PATIENT'S NAME: [facility] AGE: 41 Y [address] ROOM: [place] [address] LOCATION: [facility] [place] ADMIT DATE: 12/03/2016 OR/Procedure Report DISCHARGE DATE: FAMILY PHYSICIAN: Miah Mishra MD ATTENDING PHYSICIAN: ADITYA VILLA V INDICATIONS: Mr. Borrego is a pleasant 41-year-old gentleman who underwent the noted procedures above. The risks, benefits, and alternatives pursuing the surgical events were discussed with the patient in detail. Anesthesia was consulted for their perioperative evaluation of the patient. I marked the right lower extremity indicating the correct surgical site. OPERATIVE REPORT IN DETAIL: The patient was taken from the holding area to the operating room. A time-out was performed. Anesthetic had been administered. The right lower extremity was then prepped and draped in a sterile fashion. I turned my attention to the right foot. An Esmarch was used to exsanguinate the foot and a sterile tourniquet was placed at the level of the leg. A final time-out was performed. I turned my attention to the right foot. I made an incision to glabrous and nonglabrous portion of the lateral border of the foot. Using oscillating saw, I amputated the majority of the distal 2/3rd of the 5th metatarsal. Note that, I subsequently introduced intraoperative fluoroscopy both before and after to indicate successful partial amputation of the 5th ray. There was a plantar wound that was also debrided. I performed irrigation and debridement of skin, subcutaneous tissue, muscle, fascia, and bone. The toe was not viable and the small toe was subsequently amputated. A 6 L of normal sterile saline solution via pulsatile lavage was passed through the wound. Prior to that, cultures and tissue specimen were taken. The wound was closed in layers using 0 nylon suture in interrupted horizontal mattress fashion. There was no undue tension on the closure. Sterile dressings were placed in the form of Xeroform, followed by 4x4, and Webril. I then turned my attention to the medial aspect of the leg. Under sterile preparation, I made a longitudinal incision through the skin, subcutaneous tissue, down to the medial fascia of the leg. I identified the gastrocnemius aponeurosis. Using a 15 blade knife, I performed a gastrocnemius recession procedure. Hyperdorsiflexion moment was placed on the left foot, which allowed for an approximately 1 cm diastasis at 2 ends of the gastrocnemius aponeurosis. The wound was then copiously irrigated with a normal sterile saline solution and closed with 2-0 nylon suture in an interrupted horizontal mattress fashion. A bulky soft tissue dressing was placed and the entire leg covered with an Carl bandage. The tourniquet was then let down. The patient was then transferred from the operating room table onto the stretcher and brought to recovery room in stable condition. There were no intraoperative complications noted. PATIENT'S NAME: TESFAYE BORREGO [facility] AGE: 41 Y [address] ROOM: [address] [address] LOCATION: [facility] [place] ADMIT DATE: 12/03/2016 OR/Procedure Report DISCHARGE DATE: FAMILY PHYSICIAN: Miah Mishra MD ATTENDING PHYSICIAN: ADITYA VILLA V Of note, my PA, Neil Lee PA-C, played an integral role in the intraoperative care of this patient. This included preoperative positioning, intraoperative expert retraction, and closing and dressing functions. IMPRESSION: The patient is status post the noted procedure above. PLAN: The patient will be heel weightbearing on the right lower extremity. We will encourage the range of motion of the right ankle and foot. Antibiotics will be per order. The hospitalist should continue to manage the patient's concomitant medical comorbidities. He will be otherwise encouraged to rest, ice, and elevate the extremity when he is off it. Tissue cultures will be followed up as well as the wound cultures. We will continue to monitor the patient closely in the perioperative period. MD CELIA WHEELER/modl /[id number] d: 12/08/16 0036 t: 12/08/16 1503, OPERATIVE SUMMARY
[2016-12-03 15:47] LABS: BASOPHIL % 0.4 %; EOSINOPHIL # 0.4 K/uL (0.0-0.5); EOSINOPHIL % 3.8 %; HEMATOCRIT 34.2 % (37.0-53.0); IMMATURE GRANULOCYTE # 0.2 K/uL (0.0-0.3); IMMATURE GRANULOCYTE % 1.6 %; LYMPHOCYTE # 1.3 K/uL (0.8-4.0); LYMPHOCYTE % 11.8 %; MCHC 32.2 gm/dL (32.0-36.5); MONOCYTE # 0.9 K/uL (0.0-1.0); MONOCYTE % 8.4 %; MPV 11.2 fl (9.4-12.4); NEUTROPHIL # (ANC) 7.9 K/uL (1.4-9.0); NRBC % 0 /100WBC (0-0.00); PLATELET COUNT 281 K/uL (150-450); RBC 4.07 M/uL (4.00-6.00); RDW-CV 14.7 % (11.9-14.6); WBC 10.7 K/uL (4.0-11.0)
[2016-12-03 15:57] LABS: INR - (THERAPEUTIC) 1.2 (0.9-1.1); PROTIME 12.3 SECONDS (9.6-11.1); PTT 30 SECONDS (25-32)
[2016-12-03 16:05] LABS: ALBUMIN 3.1 gm/dL (3.5-5.0); ALK PHOS 52 IU/L (33-138); ALT 28 IU/L (12-78); ANION GAP 11.1 (10.0-19.0); AST 24 IU/L (10-40); BLOOD UREA NITROGEN 22 mg/dL (6-24); CALCIUM 8.5 mg/dL (8.5-10.5); CHLORIDE 97 mMol/L (96-110); CO2 31 mMol/L (22-32); CREATININE 1.1 mg/dL (0.6-1.3); ESTIMATED GFR (MDRD EQUATION) > 60; POTASSIUM 4.1 mMol/L (3.7-5.1); SODIUM 135 mMol/L (135-145)
[2016-12-03 17:39] LABS: BILIRUBIN URINE NEGATIVE (NEGATIVE); BLOOD URINE NEGATIVE /UL (NEGATIVE); GLUCOSE URINE NEGATIVE (NEGATIVE); KETONE URINE NEGATIVE (NEGATIVE); LEUKOCYTES URINE NEGATIVE /UL (NEGATIVE); NITRITE URINE NEGATIVE (NEGATIVE); PH URINE 6.5 (4.0-8.0); PROTEIN URINE NEGATIVE (NEGATIVE); UROBILINOGEN URINE 4 mg/dL (NORMAL)
[2016-12-03 17:41] LABS: COLOR URINE YELLOW (YELLOW); TURBIDITY URINE CLEAR (CLEAR)
--- NOTE | 2016-12-03 18:40 | NUR ---
Pt is 41 y/o male admit for osteomylitis right foot for hospitalist. PT alert and oriented x3. REsides at home with his . No allergies. Hx DM,htn, hypercholest,pacemaker/AICD,CHF,edema,cardiomyopathy,sleep apnea-brought CPAP with him,recent cough,toes amputated x2 left foot,hx cellulitis. Plan is for IV antibiotics. Pt will need sizewise accommodations.
[2016-12-03] MEDS ORDERED: ZOCOR20 MG PO (20:16)
[2016-12-03] MEDS ORDERED: COREG25 MG PO (20:17)
[2016-12-03] MEDS ORDERED: LASIX80 MG PO (20:18)
[2016-12-03] MEDS ORDERED: ZESTRIL40 MG PO (20:18)
[2016-12-03] MEDS ORDERED: MAG-OX-400(241400 MG PO (20:18)
[2016-12-03] MEDS ORDERED: ECOTRIN325 MG PO (20:19)
[2016-12-03] MEDS ORDERED: ZAROXOLYN2.5 MG PO (20:21)
[2016-12-03] MEDS ORDERED: ROBITUSSIN100 MG/5 M PO (20:24)
[2016-12-03] MEDS ORDERED: HUMULIN R500 UNIT/M SUB-Q (20:27)
--- NOTE | 2016-12-04 05:48 | NUR ---
Significant Event: Patient alert and oriented X4. Up with one person assist, and walker. Non weight bearing to R) leg. IV to L) wrist running intermittent IV zosyn and vanco. On diabetic diet. CPAP at night. Vitals stable. Drainage to R) foot noted. Woc and ortho consult today. Voiding per bathroom. Patient wishes to stay in home pjs. Cooperaive with cares. ACHS accuchecks. MIld SSI. Follow up: Denies pain, monitor drainage
--- NOTE | 2016-12-04 16:01 | NUR ---
Significant Event: Pt denies pain. up with standby assist and walker, min wt bearing to right foot. Right foot open blisters oozing small amt of sero/sang drainage. IV had no blood return for 1100 Vanco dose, pharmacy and MD aware. Will have PICC line placed later this evening, so dose held for now. Did give Zosyn and IV flushes just no blood return. Ortho consult, WOC consulted. Ortho said it ok to apply gauze and tarik wrap per pt request. Follow up:
--- NOTE | 2016-12-05 03:47 | NUR ---
SIGNIFICANT EVENT: Patient alert & oriented. SBA to ambulate to BR. BID dressing changes to R) foot - / iodoform nu-gauze with kerlix. Iodoform not available until patient was already in bed - dressing reinforced d/t saturated and leaking. Island dressing and more kerlix so pt could ambulate to bathroom. VSS on RA. Diabetic diet. New insulin orders - still Mild SS but with add'l 25 units Novolog with meals TID. HS BG of 268 - 4 units given. Midline to R) upper arm - coban applied. Intermittent IV antibiotics. 2 voids, no BM this shift. Denies pain. Pleasant and cooperative with cares.
[2016-12-05 06:49] LABS: BASOPHIL # 0.1 K/uL (0.0-0.2); BASOPHIL % 0.6 %; EOSINOPHIL # 0.6 K/uL (0.0-0.5); EOSINOPHIL % 5.9 %; HEMATOCRIT 35.5 % (37.0-53.0); IMMATURE GRANULOCYTE # 0.2 K/uL (0.0-0.3); IMMATURE GRANULOCYTE % 2.6 %; LYMPHOCYTE # 1.4 K/uL (0.8-4.0); LYMPHOCYTE % 15.2 %; MCH 26.8 pg (27.0-34.0); MCV 86.4 fl (83.0-98.0); MONOCYTE # 0.7 K/uL (0.0-1.0); MONOCYTE % 7.8 %; MPV 10.9 fl (9.4-12.4); NEUTROPHIL # (ANC) 6.4 K/uL (1.4-9.0); NEUTROPHIL % 67.9 %; NRBC % 0 /100WBC (0-0.00); PLATELET COUNT 275 K/uL (150-450); RBC 4.11 M/uL (4.00-6.00); RDW-CV 14.6 % (11.9-14.6); WBC 9.4 K/uL (4.0-11.0)
[2016-12-05 07:08] LABS: ANION GAP 10.6 (10.0-19.0); BLOOD UREA NITROGEN 12 mg/dL (6-24); CALCIUM 8.6 mg/dL (8.5-10.5); CHLORIDE 103 mMol/L (96-110); CO2 28 mMol/L (22-32); CREATININE 0.9 mg/dL (0.6-1.3); ESTIMATED GFR (MDRD EQUATION) > 60; POTASSIUM 4.6 mMol/L (3.7-5.1); SODIUM 137 mMol/L (135-145)
[2016-12-05 07:10] LABS: MAGNESIUM 2.7 mg/dL (1.3-2.6)
--- NOTE | 2016-12-05 15:24 | NUR ---
Significant Event: Pt denies pain. Dressing changed to left lower leg, had a large amt of sero/sang drainage from site. up ad jeremías to br with walker. Midline to right arm. Ate breakfast at 10 am and ate lunch around 3pm so have been doing insulin and accuchecks at times pt eats. Follow up:
--- NOTE | 2016-12-06 03:36 | NUR ---
SIGNIFICANT EVENT: Patient alert & oriented. SBA walker. Order is for NWB to R) foot but patient ambulates weight bearing to both feet. VSS on RA. CPAP at HS. New orders for Aggressive SS ACHS with 20 units levemir qHS. HS BG of 203 required 6 units novolog. dressing changed - supplies in room. Iodoform Nu-Gauze to wound sight (R lateral distal foot) wrapped in kerlix. Intermittent IV antibiotics to R) UA midline - occasionally occluded, but positional. Flushes well with good blood return. Pleasant and cooperative with cares.
[2016-12-06 04:53] LABS: BASOPHIL # 0.1 K/uL (0.0-0.2); BASOPHIL % 0.6 %; EOSINOPHIL # 0.5 K/uL (0.0-0.5); HEMOGLOBIN 10.3 g/dL (12.0-17.0); IMMATURE GRANULOCYTE # 0.2 K/uL (0.0-0.3); IMMATURE GRANULOCYTE % 2.9 %; LYMPHOCYTE # 1.3 K/uL (0.8-4.0); MCH 26.9 pg (27.0-34.0); MCHC 31.2 gm/dL (32.0-36.5); MCV 86.2 fl (83.0-98.0); MONOCYTE # 0.6 K/uL (0.0-1.0); MONOCYTE % 7.7 %; NEUTROPHIL # (ANC) 5.4 K/uL (1.4-9.0); NEUTROPHIL % 66.8 %; NRBC % 0 /100WBC (0-0.00); PLATELET COUNT 249 K/uL (150-450); RBC 3.83 M/uL (4.00-6.00); RDW-CV 14.6 % (11.9-14.6); WBC 8.1 K/uL (4.0-11.0)
[2016-12-06 05:08] LABS: ANION GAP 12.2 (10.0-19.0); BLOOD UREA NITROGEN 9 mg/dL (6-24); CALCIUM 8.5 mg/dL (8.5-10.5); CHLORIDE 105 mMol/L (96-110); CO2 27 mMol/L (22-32); CREATININE 0.8 mg/dL (0.6-1.3); ESTIMATED GFR (MDRD EQUATION) > 60; POTASSIUM 4.2 mMol/L (3.7-5.1); SODIUM 140 mMol/L (135-145)
--- NOTE | 2016-12-06 15:34 | NUR ---
Significant Event: Pt denies pain. Up ad jeremías in room. Dressing changed at 1300 to righ foot. refused shower. Midline dressing changed as it was positional. NPO after midnight, Dr. Almazan to discuss options in am. Follow up:
--- NOTE | 2016-12-07 02:14 | NUR ---
SIGNIFICANT EVENT: Patient alert & oriented. Independent to SBA with walker. Midline to R) upper arm has intermittent antibiotics, can flush hard at times but seems to be positional. Held HS levemir and novolog - HS BG was 162. Patient ate at approx 1500 yesterday but did not want dinner or a snack. Hospitalist contacted - new order to hold HS insulins for 12/06/12. 0225 BG spot check was 148. DeBlis to come in to discuss options in a.m. - patient is on the OR schedule - time TBD. CPAP at HS. VSS on RA. Pleasant and cooperative with cares.
[2016-12-07 06:50] LABS: ANION GAP 11.1 (10.0-19.0); BLOOD UREA NITROGEN 9 mg/dL (6-24); CALCIUM 8.5 mg/dL (8.5-10.5); CHLORIDE 105 mMol/L (96-110); CO2 29 mMol/L (22-32); CREATININE 0.9 mg/dL (0.6-1.3); ESTIMATED GFR (MDRD EQUATION) > 60; POTASSIUM 4.1 mMol/L (3.7-5.1); SODIUM 141 mMol/L (135-145)
--- NOTE | 2016-12-07 12:34 | NUR ---
[facility] note: 1000 Patient states he has been a patient of Kary Astudillo APRN in the [facility] in the past and is now being followed by Dr. Wilbert Mishra at for diabetes scripts. Patient states he does have a follow up in December with MD, A1C currently 8.7 %. Encouraged to complete the Diabetes Survival Skills Assessment form and CDE asks if there is anything that we can assist him with regarding his diabetes, patient can not identify anything at this time that he needs assistance with. Waiting to talk with orthopedic surgeon today to see if he is going to have surgery, remains NPO.
--- NOTE | 2016-12-07 14:37 | NUR ---
Introduced self and care management services to patient and at bedside. Lives in [place], working there. Too soon now to know what needs will be on discharge, hoping to just go home but a primary care sales representative will be following to assist with dc planning as needs identified.
--- NOTE | 2016-12-07 19:21 | NUR ---
Significant Event: Patient A/O x3. VS stable on RA. Patient NPO this shift for scheduled I&D to R) foot. NO complains of pain this shift. Patient denies numbness or tingling to extremities. Patient on ACHS accuchecks no insulin given this shift due to patient being NPO. Patient recieving Zosyn and Vancomycin. Patient 1 assist walker to bathroom. Shower done this shift. Midline IV to R) AC. Patient pleasant and cooperative with cares. supportive at bedside. Follow up:
--- NOTE | 2016-12-08 04:33 | NUR ---
NEURO: A&O. CARDIO: WNL. Lovenox. RESP: CPAP at noc. 2ltrs of O2 last night. GI/: Void per urinal with asssist. No nausea. No BM this shift. Accuchecks ACHS. Aggressive scale. Scheduled Novolog as well as sliding scale. Levemir. SKIN: Carl wrap to RLE. IV: Midline R AC. Positional. ACTIVITY: Has not been up since return from surgery. Prior to surgery patient was a 1 assist. PAIN: Popliteal block for procedure. Patient has declined multiple offers for pain medications. PLAN: Discharge when appropriate.
[2016-12-08 06:17] LABS: BASOPHIL % 0.3 %; EOSINOPHIL # 0.5 K/uL (0.0-0.5); EOSINOPHIL % 4.9 %; HEMOGLOBIN 10.3 g/dL (12.0-17.0); IMMATURE GRANULOCYTE # 0.2 K/uL (0.0-0.3); IMMATURE GRANULOCYTE % 1.7 %; LYMPHOCYTE # 1.1 K/uL (0.8-4.0); LYMPHOCYTE % 11.4 %; MCHC 31.2 gm/dL (32.0-36.5); MCV 86.6 fl (83.0-98.0); MONOCYTE # 0.7 K/uL (0.0-1.0); MONOCYTE % 7.7 %; MPV 10.7 fl (9.4-12.4); NEUTROPHIL # (ANC) 6.8 K/uL (1.4-9.0); NRBC % 0 /100WBC (0-0.00); PLATELET COUNT 229 K/uL (150-450); RBC 3.81 M/uL (4.00-6.00); RDW-CV 14.8 % (11.9-14.6); WBC 9.2 K/uL (4.0-11.0)
[2016-12-08 06:25] LABS: ANION GAP 11.3 (10.0-19.0); BLOOD UREA NITROGEN 8 mg/dL (6-24); CALCIUM 8.4 mg/dL (8.5-10.5); CHLORIDE 107 mMol/L (96-110); CO2 29 mMol/L (22-32); ESTIMATED GFR (MDRD EQUATION) > 60; MAGNESIUM 2.4 mg/dL (1.3-2.6); POTASSIUM 4.3 mMol/L (3.7-5.1); SODIUM 143 mMol/L (135-145)
--- NOTE | 2016-12-08 09:30 | NUR ---
DIABETES CONSULT: Patient is well known to me from previous admissions and as an outpatient in the [facility]. Current A1C is 8.7%. however, blood sugars are controlled in the 160's. The patient is morbidly obese and reports having lost 20 pounds after making more conscious meal choices. The patient is motivated to continue to limit his carb intake with meals and increase his activity as permitted by the surgeon. Diabetes survival skills assessment sheet completed. Patient denies questions or concerns. Will continue to follow.
--- NOTE | 2016-12-08 12:26 | NUR ---
A-SCREENED D/T LOS S/P I&D OF R)FOOT, AMPUTATION R)5TH TOE-POD #1 HT: 79 IN WT: 263.4 KG BMI: 65.4 LABS: NA 143, K+ 4.3, GLU 146, BUN 8, BLANKET INSPECTOR 1.0 3/16-ALB 3.1, CRP 10.8 MEDS: NOVOLOG, LASIX, ZOCOR, ZOSYN, VANCO, LEVEMIR, PRN BOWEL MEDS, AMBIEN, PERCOCET, REGLAN, MORPHINE DIET RX: CONSISTENT CARB W/NO FLUIDS ON TRAY. PO INTAKE PRIOR TO SURGERY WAS 100%. PT REFUSED BRK THIS AM EST NUTR NEEDS: [id number] KCALS (22-25 KCALS/KG) 150-200 GM PROTEIN (1.5-2.0 GM/KG IBW) FLUIDS PER MD D-NOT AT NUTRITION RISK W/ADEQUATE PO INTAKE PRE-OP; NO NUTRITION DX IDENTIFIED. I-CONTINUE W/CURRENT DIET RX M/E-GOAL: WILL ASSIST NEEDED
--- NOTE | 2016-12-08 14:20 | NUR ---
Met with patient and family in the room today. Introduced myself and explained that I was following for Roseanne. Patient lives at home with and states he was mobile before coming to the hospital. He states he was able to ambulate to all areas of his home prior to this hospitalization. He understands that he will be seeing the ID doctors tomorrow and depending on their recommendation he may need to go home on IV antibiotics. He also states that Dr. Almazan is going to change the dressing tomorrow. His states they have the clinic and hospital in [place], but they are also close to [facility] or [facility]ne in [place] if they need to do out patient IV antibiotics there. I explained to them both that right now we do not know what his discharge needs will be so a CM will continue to follow along and help make arrangements if needed. They both voiced their understanding. Both are very pleasant and appreciative of help. CM department will continue to follow.
--- NOTE | 2016-12-08 17:11 | NUR ---
Significant Event: Patient is alert and oriented x3. VSS and on RA. Increased to a 2000 ml FR per day vs 800. Accuchecks AC/HS. Midline in the R)Ac, very positional. Rearranged several times, good blood return. Up with SBA with walker. PT and OT working with him. Denies numbness and tingling. Neuro checks intact. NWB right LE. Left lower extremity is wrapped up. Percocet given x1, last given at 0849, relief noted. Has denied pain since then. Working with PT and OT. Cooperative with cares.
--- NOTE | 2016-12-09 05:26 | NUR ---
NEURO: A&O. Good [facility]. CARDIO: Lovenox. RESP: mid 90's on RA. CPAP at [facility]. GI/: ACHS accuchecks. Agressive scale. Scheduled Novolog with meals. Levemir. 2000ml fluid restriction. SKIN: RLE tarik wrapped. CDI. IV: Midline RUE. Positional. IV antibiotics. ACTIVITY: NWB RLE. Up with PT/OT. SBA with gait belt and walker. Please have PT adjust height of commode. PAIN: Percocet x 1 this shift. PLAN: Discharge when appropriate.
[2016-12-09 05:49] LABS: ANION GAP 9.9 (10.0-19.0); BLOOD UREA NITROGEN 8 mg/dL (6-24); CALCIUM 8.4 mg/dL (8.5-10.5); CHLORIDE 107 mMol/L (96-110); CO2 29 mMol/L (22-32); CREATININE 1.1 mg/dL (0.6-1.3); ESTIMATED GFR (MDRD EQUATION) > 60; MAGNESIUM 2.3 mg/dL (1.3-2.6); POTASSIUM 3.9 mMol/L (3.7-5.1); SODIUM 142 mMol/L (135-145)
--- NOTE | 2016-12-09 14:28 | NUR ---
Introduced self and role of care management to pt and his . They live in [facility] and his cardiac doctor is still here in town. I did discuss some regarding dc plans and unsure what it all entails. He states ortho has not been by and gave the recommendations and also is thinking will need home infusion but ID has not been by as well. He thinks he will need bariatic crutches as well. I did ask about hhc or home infusion companies and they do not care just making sure they would be in network. I did call [facility] and faxed information and will see if in network and go from there. Pam did leave a vm stating they are in network with $2000 deductible and has not met it yet but the hospital bill is not on it yet. I then spoke with Jenny and lee [facility], [place] [phone], [employer] [phone]. [facility] [phone] is the [facility] which is out of [place], [place]. I did talk with Pam and she stated she assures me they are in network and she was on the phone for 20 minutes with gauri turpin and yes they work with [facility] and she will call and give them a heads up. WIll continue to follow.
--- NOTE | 2016-12-09 15:59 | NUR ---
I did talk with Dr Hassan and explained I have contacted the home infusion but it is based on the path that we do not have yet. I did call around and the only place that has bariatric crutches is [facility] for 6'6 and 550# for $50.14. I did tell Teresa to hold them for the pt. I did tell what his deductible is but has not been met but that does not include the hospital so will see how everything goes and if he will need iv atb. I then told her about crutches and she will go get them and just pay privately. WIll continue to follow.
--- NOTE | 2016-12-09 16:25 | NUR ---
Significant Event: Patient is alert and oriented x3. VSS and on RA. Up with SBA and crtuches. NWB to the right lower extremity. Midline IV to the right AC- good blood return. Positional. Accuchecks AC/HS. Has not had a BM yet. Good urine output- a few voids were missed measurements. Percocet given x1 early this afternoon- relief noted. IV anitbiotics changed to unasyn. Currently are waiting I believe for a certain report to know the certain direction for the patient to go home on certain antibitoics. Dressing changed today by Neil GILMORE. Neuro checks intact. Follow Up: Possibly dismissal tomorrow or Wednesday
--- NOTE | 2016-12-10 03:31 | NUR ---
Shift Summary: Patient can ambulate with crutches and one standby assist. Has Midline cath saline lock. Tolerating ADA diet well. On Moderate SS. Was 183 at bedtime. Gave 2units Insulin. Has diabetic neuropathy to bottom of both feet/toes. Carl wrap dressing free from drainage. Waiting for culture results to determine discharge plan. Patient did not require any PRN pain medication this shift.
--- NOTE | 2016-12-10 13:30 | NUR ---
Spoke to DEIRDRE Douglas at 0950 regarding patient. She states that we are still waiting on the path report on patient so we know if he will need PO or IV antibiotics. LEILANI Silvestre started the referral process to [facility] yesterday and Pam with [facility] was assisting in setting up Home Health Care. Phone call from LEILANI Linares at 1120 stating Elizabeth Bauer wrote orders for IV antibiotics and asked me to follow up on this. I placed a call to Elizabeth Bauer at 1140 and she states the specimen for the path report were lost so we are going ahead with planning IV antibiotics for 6 weeks. I returned to the floor at 1230 and got the papers off of patient's chart with the Home Infusion/HomeHealth referral. I called Pam at [facility] and faxed her the orders at 1305. Patient's next dose of the Unasyn is scheduled for 1700 so we will plan a discharge to home tomorrow after the 1100 dose. Pam with [facility] will call me back and confirm that Home Health is set up to meet patient at his home for the 1700 dose. I notified Charge Nurse Mana of the discharge plan for tomorrow. Will continue to follow.
--- NOTE | 2016-12-10 15:42 | NUR ---
Significant Event: Patient is alert and oriented x3. VSS and on RA. Wears CPAP at night. Will be going to get a tunneled powerline for IV ABX at home. Midline line in place at this time. Up with SBA and crutches. Sliding scale changed to aggressive. Started on miralax daily, has been trying to have a BM today. Gave carisporodol at 1426 x1, relief noted. Cooperative with cares. Iv Unasyn. Follow Up: Possible dismissal yet today, setting up home infusion
--- NOTE | 2016-12-11 04:48 | NUR ---
Significant Event: ALERT AND ORIENTATED X4. AMBULATES WITH CRUTCHES AND STAND BY ASSIST. NO WEIGHT TO R LEG. MIDLINE UPPER R CHEST PUT IN TODAY. ACHS. ON MODERATE SLIDING. 2000 ML FLUID RESTRICTION. NEURO Q 2 HR. NO COMPLAINTS OF PAIN OR DISCOMFORT. NO PAIN MEDICATION GIVEN THIS SHIFT. PLAN IS TO DISCHARGE TO HOME POSSIBLY THIS AM. Follow up:
[2016-12-11 06:19] LABS: ANION GAP 10.5 (10.0-19.0); BLOOD UREA NITROGEN 13 mg/dL (6-24); CALCIUM 8.4 mg/dL (8.5-10.5); CHLORIDE 108 mMol/L (96-110); CO2 30 mMol/L (22-32); CREATININE 0.9 mg/dL (0.6-1.3); ESTIMATED GFR (MDRD EQUATION) > 60; MAGNESIUM 2.2 mg/dL (1.3-2.6); POTASSIUM 3.5 mMol/L (3.7-5.1); SODIUM 145 mMol/L (135-145)
[2016-12-11] MEDS ORDERED: UNASYN3 GM IV (11:41)
[2016-12-11] MEDS ORDERED: FLORASTOR250 MG PO (11:44)
[2016-12-11] MEDS ORDERED: TYLENOL325 MG PO (11:45)
[2016-12-11] MEDS ORDERED: PERCOCET 5-3251 EACH PO (11:47)
--- NOTE | 2016-12-11 12:20 | NUR ---
Phone call to Dr. Hassan at 0852 this morning to let him know that home infusion is set up for patient and he needs to be discharged no later than 1200 so he can get home in time for his 1700 infusion. I also called Neil Lee and let him know that Home Health just called me and stated patient will need a script for the dressing supplies because his insurance will not allow or cover the supplies if they provide them to the patient. At 1125 I faxed final discharge orders to [facility] and [facility] in [place]. No other needs at this time.
--- NOTE | 2016-12-11 12:32 | NUR ---
D:Orders received for patient to be dismissed with home infusion to be set up at home. I:Dismissal instructions were prepared and reviewed with the patient and his family. The following information was reviewed:diet and activity recommendations for home, s/s of infection to report to MD if develops, plans for home infusion to be calling him re: getting set up for IV unasyn to be given at home and for dressing changes at home, home medications/new prescription medications, and follow up appointments with Dr. Ramirez seth in [place] and ID and Diabetes MD in [place]. Lamar teaching given to and reviewed with the patient on the following topics: Discharge Instructions for Osteomyelitis, Unasyn, Florastor, Percocet, Tylenol and Prevention of DVT's. Heart Failure Instruction Sheet was reviewed with the patient and signed by the patient. R:The patient verbalized understanding of above teaching and denied further questions at this point in time. P:The patient's nurse was informed that the dismissal instructions were reviewed with the patient and that the patient had signed them and had his prescriptions. The patient will be dismissed shortly. Laura MOMIN
== END 2016-12-11 13:00 | disposition home health service (06) | DRG 617 ==
LOC: GMED 14:21 → GMSU 18:17
PROVIDERS: Family Medicine; Hospitalist; Internal Medicine; Nurse Practitioner Family; ADMIT Internal Medicine
DX: E11.69 Type 2 diabetes mellitus with other specified complication (principal); I42.9 Cardiomyopathy, unspecified; J96.10 Chronic respiratory failure, unspecified whether with hypoxia or hypercapnia; Z68.44 Body mass index [BMI] 60.0-69.9, adult; E11.52 Type 2 diabetes mellitus with diabetic peripheral angiopathy with gangrene; M86.9 Osteomyelitis, unspecified; E66.01 Morbid (severe) obesity due to excess calories; L03.115 Cellulitis of right lower limb; E11.621 Type 2 diabetes mellitus with foot ulcer; G47.33 Obstructive sleep apnea (adult) (pediatric); Z79.82 Long term (current) use of aspirin; Z79.4 Long term (current) use of insulin; I10 Essential (primary) hypertension; Z95.810 Presence of automatic (implantable) cardiac defibrillator; L97.519 Non-pressure chronic ulcer of other part of right foot with unspecified severity; B95.4 Other streptococcus as the cause of diseases classified elsewhere; B95.61 Methicillin susceptible Staphylococcus aureus infection as the cause of diseases classified elsewhere; B96.4 Proteus (mirabilis) (morganii) as the cause of diseases classified elsewhere; M67.01 Short Achilles tendon (acquired), right ankle
CPT/HCPCS: C1751; J0295; J1644; J1650; J2250; J2405; J2543; J3370; J3480; J7030; J7040; J7050

== ENCOUNTER → 2017-02-25 | Outpatient (CLI) | payer OTHER ==
[~2017-02-25] MED LIST: COREG25 MG PO; ECOTRIN325 MG PO; FLORASTOR250 MG PO; HUMULIN R500 UNIT/M SUB-Q; LASIX80 MG PO; MAG-OX-400(241400 MG PO; PERCOCET 5-3251 EACH PO; ROBITUSSIN100 MG/5 M PO; TYLENOL325 MG PO; UNASYN3 GM IV; ZAROXOLYN2.5 MG PO; ZESTRIL40 MG PO; ZOCOR20 MG PO
[2017-02-25 17:59] LABS: ANION GAP 9.6 (10.0-19.0); BLOOD UREA NITROGEN 26 mg/dL (6-24); CALCIUM 8.6 mg/dL (8.5-10.5); CHLORIDE 96 mMol/L (96-110); CO2 34 mMol/L (22-32); CREATININE 1.1 mg/dL (0.6-1.3); ESTIMATED GFR (MDRD EQUATION) > 60; POTASSIUM 3.6 mMol/L (3.7-5.1); SODIUM 136 mMol/L (135-145)
== END | disposition disaster alternative care site (69) ==
LOC: LNHI 16:37
PROVIDERS: Internal Medicine Cardiovascular Disease
DX: I10 Essential (primary) hypertension (principal); I50.22 Chronic systolic (congestive) heart failure

== ENCOUNTER → 2017-04-07 | Outpatient (CLI) | payer OTHER ==
[2017-04-07 18:44] LABS: ANION GAP 11.7 (10.0-19.0); BLOOD UREA NITROGEN 22 mg/dL (6-24); CALCIUM 8.8 mg/dL (8.5-10.5); CHLORIDE 97 mMol/L (96-110); CO2 31 mMol/L (22-32); POTASSIUM 3.7 mMol/L (3.7-5.1); SODIUM 136 mMol/L (135-145)
== END | disposition disaster alternative care site (69) ==
LOC: LNHI 17:34
PROVIDERS: Internal Medicine Cardiovascular Disease
DX: I50.20 Unspecified systolic (congestive) heart failure (principal); I10 Essential (primary) hypertension

== ENCOUNTER → 2017-05-20 | Outpatient (CLI) | payer OTHER ==
[2017-05-20 13:05] LABS: ANION GAP 9.7 (10.0-19.0); CALCIUM 8.7 mg/dL (8.5-10.5); CREATININE 1.1 mg/dL (0.6-1.3); MAGNESIUM 2.3 mg/dL (1.8-2.6); POTASSIUM 3.7 mMol/L (3.7-5.1)
== END ==
LOC: LNHI 12:44
PROVIDERS: Internal Medicine Cardiovascular Disease
DX: I50.22 Chronic systolic (congestive) heart failure (principal); I10 Essential (primary) hypertension